=== PATIENT | female | born 1965 | race Caucasian/White ===

== ENCOUNTER 2017-08-14 13:50 | Emergency (ER) | payer BC ==
--- NOTE | 2017-08-14 14:56 | RAD ---
HISTORY: Fall with dorsal wrist pain and swelling COMPARISONS: None VIEWS: 4, Frontal, lateral, and oblique views of the left wrist FINDINGS: BONE DENSITY: Normal. BONES: There is a small bone fragment along the dorsal aspect of the proximal carpal row seen on the lateral projection only. JOINTS: There is no arthropathy. ALIGNMENT: There is no dislocation. SOFT TISSUES: Unremarkable. OTHER FINDINGS: None. IMPRESSION: SMALL BONE FRAGMENT ALONG THE DORSAL ASPECT OF THE PROXIMAL CARPAL ROW CONSISTENT WITH AVULSION INJURY
[2017-08-14 15:47] VITALS: BP 122/78
--- NOTE | 2017-08-14 16:25 | ED ---
Upper Extremity Pain - HPI Summary HPI Summary: [id number] patient here with left dorsal wrist pain status post falling yesterday. She reports she slipped on a wet spot and fell onto her bottom also catching herself with both of her hands behind her. She's had mild swelling and tenderness over the dorsal aspect of her wrist since. Denies numbness tingling weakness and does not have any limitations with range of motion, simply reports is painful to extend her wrist. She denies previous injury here but does have a history of gout in this wrist. This does not feel the same today. She has tried applying a wrist sleeve which does help. She does not want anything regarding medication or ice for this injury. Reports she has had soreness running up her arm into mid humerus as well but this has improved. She admits she fell onto her bottom but no pain here - no head injury nor jarring pain -no GREGORIO or neck pain and LE's are w/o n/t/w - no change in bowel /bladder habits. NOTE: She also reports she's had a small bump on the back of this wrist for a while now - she is unsure how it started or what it is - chiropractor told her it may be a ganglion cyst. 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 - Allergies/Home Medications Allergies/Adverse Reactions: Allergies Allergy/AdvReac Type Severity Reaction Status Date / Time Penicillins Allergy Hives Verified 08/14/17 13:55 PMH/Surg Hx/FS Hx/Imm Hx Previously Healthy: Yes Endocrine/Hematology History: Denies: Hx Anticoagulant Therapy, Hx Blood Disorders Musculoskeletal History: Reports: Hx Arthritis - RIGHT HAND, Hx Gout - left wrist, Hx Osteoporosis Sensory History: Denies: Hx Contacts or Glasses, Hx Hearing Aid Opthamlomology History: Denies: Hx Contacts or Glasses - Surgical History Surgery Procedure, Year, and Place: TUBAL - CMCCARPAL TUNNEL AND CYST REMOVED AT AGE 18. ORIF RIGHT CALCANEUS. Hx Anesthesia Reactions: No Infectious Disease History: No Infectious Disease History: Denies: Traveled Outside the [place] in Last 30 Days - Family History Known Family History: Positive: None - Social History Occupation: Employed Full-time Lives: With Family Alcohol Use: Daily Alcohol Amount: 1 PER DAY Hx Substance Use: No Substance Use Type: Reports: None Hx Tobacco Use: No Smoking Status (MU): Never Smoked Tobacco Have You Smoked in the Last Year: No Review of Systems Constitutional: Negative Negative: Fatigue Eyes: Negative Negative: Photophobia, Blurred Vision Negative: Vomiting, Nausea Positive: no symptoms reported Positive: Arthralgia, Myalgia, Edema. Negative: Decreased ROM Skin: Negative Neurological: Negative Psychological: Normal All Other Systems Reviewed And Are Negative: Yes Physical Exam Triage Information Reviewed: Yes Vital Signs On Initial Exam: Initial Vitals Temp Pulse Resp BP Pulse Ox 99.3 F 68 18 131/83 100 08/14/17 13:51 08/14/17 13:51 08/14/17 13:51 08/14/17 13:51 08/14/17 13:51 Vital Signs Reviewed: Yes Appearance: Positive: Well-Appearing, No Pain Distress, Obese Skin: Positive: Warm, Skin Color Reflects Adequate Perfusion, Dry - No erythema , no ecchymosis over affected area Head/Face: Positive: Normal Head/Face Inspection Eyes: Positive: EOMI ENT: Positive: Hearing grossly normal Neck: Positive: Nontender, Other: - Full range of motion without pain or restriction Respiratory/Lung Sounds: Positive: Breath Sounds Present Cardiovascular: Positive: Pulses are Symmetrical in both Upper and Lower Extremities Musculoskeletal: Positive: Strength/ROM Intact, Pain @ - Mild tenderness to palpation over the dorsal left wrist - there is subtle edema in this area compared to right wrist - no gross deformity or skin breakdown Neurological: Positive: Normal, Sensory/Motor Intact, Alert, Oriented to Person Place, Time, CN Intact II-III Psychiatric: Positive: Normal Diagnostics - Vital Signs Vital Signs Temp Pulse Resp BP Pulse Ox 08/14/17 15:46 98.2 F 66 16 122/78 97 08/14/17 13:51 99.3 F 68 18 131/83 100 - Laboratory Lab Statement: Any lab studies that have been ordered have been reviewed, and results considered in the medical decision making process. Course/Dx - Course Course Of Treatment: X-ray report and image reveal a tiny avulsion fracture over the dorsal aspect of the wrists or patient is complaining of pain and swelling. Placed in a cock-up splint and advised to RICE. She may also use acetaminophen alternating with ibuprofen as needed for pain and swelling. Since she had a previous area of swelling here as well as gout and no new injury , she will be referred to a hand specialist for follow-up care in the event that she has an underlying condition in this wrist predisposing her to worse injury. She will keep her wrist in splint until seen by hand specialist. Review danger signs and symptoms of when to return to the emergency department. Patient agrees with plan. - Diagnoses Provider Diagnoses: Avulsion fracture of left wrist Discharge - Sign-Out/Discharge Documenting (check all that apply): Discharge - Discharge Plan Condition: Stable Disposition: HOME Patient Education Materials: Avulsion Fracture (ED) Referrals: Valerio Myers MD [Medical Doctor] - No Primary Care Phys,NOPCP [Primary Care Provider] - Additional Instructions: REST, ICE, ELEVATE AND KEEP SPLINT CLEAN, DRY AND IN PLACE UNTIL SEEN BY ORTHOPEDICS. Call orthopedics today to schedule follow-up You may take ibuprofen alternating with acetaminophen as needed for pain *If you develop numbness, tingling, weakness, swelling or skin discoloration, remove splint and elevate arm for 20 minutes. If symptoms persist, return to ED - Billing Disposition and Condition Condition: STABLE Disposition: HOME
== END 2017-08-14 15:46 | disposition home or self-care (01) ==
LOC: ED 13:50
DX: S62.102A Fracture of unspecified carpal bone, left wrist, initial encounter for closed fracture (principal); W01.0XXA Fall on same level from slipping, tripping and stumbling without subsequent striking against object, initial encounter; Y92.9 Unspecified place or not applicable
CPT/HCPCS: 99282